=== PATIENT | male | born 1975 | race Caucasian/White ===

== ENCOUNTER → 2016-12-28 | Outpatient (CLI) | payer OTHER ==
[~2016-12-28] MED LIST: DICL75TA PO; GABA-586 PO; LISI1TAB3 PO
[2016-12-28 15:14] LABS: BASO # 0.1 x10^3/uL (0.0-0.2); BASO % 1 % (0-3); EOS % 4 % (0-3); HEMATOCRIT 44.8 % (39.0-53.0); HEMOGLOBIN 15.1 g/dL (13.0-17.5); LYMPH # 3.7 x10^3/uL (1.0-4.8); LYMPH % 44 % (24-48); MEAN CORPUSCULAR HEMOGLOBIN 29 pg (25-35); MEAN CORPUSCULAR HGB CONC 34 g/dL (31-37); MEAN CORPUSCULAR VOLUME 86 fL (79-100); MONO % 6 % (0-9); NEUT % 45 % (31-73); PLATELET COUNT 185 x10^3/uL (140-400); RED BLOOD COUNT 5.19 x10^6/uL (4.30-5.70); RED CELL DISTRIBUTION WIDTH 14.3 % (11.5-14.5); WHITE BLOOD COUNT 8.5 x10^3/uL (4.0-11.0)
[2016-12-28 15:38] LABS: ALBUMIN 3.6 g/dL (3.4-5.0); ALBUMIN/GLOBULIN RATIO 1.2 (1.0-1.7); CALCIUM 8.2 mg/dL (8.5-10.1); CREATININE 1.2 mg/dL (0.7-1.3); GFR 66.1; POTASSIUM 3.4 mmol/L (3.5-5.1); TOTAL BILIRUBIN 0.5 mg/dL (0.2-1.0); TOTAL PROTEIN 6.7 g/dL (6.4-8.2)
--- NOTE | 2016-12-29 09:03 | EKG ---
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
== END | disposition home or self-care (01) ==
LOC: SURGPAT 13:43
PROVIDERS: ATTEND Neurological Surgery
DX: Z01.818 Encounter for other preprocedural examination (principal); I10 Essential (primary) hypertension
CPT/HCPCS: 36415; 80053; 83036; 85025; 87641; 93005

== ENCOUNTER 2017-01-06 09:46 | Day surgery (SDC) | payer OTHER ==
[~2017-01-06] VITALS: Ht 177.8 cm; Wt 112.0 kg
--- NOTE | 2017-01-06 06:53 | HP ---
ADMIT DATE: 01/05/2017 This is Jaswant Eugene RN, dictating for Dr. Alli Callahan. SCHEDULED DATE OF SURGERY: 01/06/2017 HISTORY OF PRESENT ILLNESS: The patient is a pleasant 41-year-old who in 2011 underwent lumbar surgery, which he said helped for about 2 years. His current problem is low back pain and predominantly on the left side with pain which radiates into his left hip and lateral thigh and leg. The problem has been present for about 3 years and it is slowly progressing. Currently, the pain is at 3/10. He says with activity and walking, his pain is increased significantly. He takes gabapentin and diclofenac and uses Advil. He has had epidural steroid injections, which only gave him a few days relief. I studied him with lumbar myelography. PAST MEDICAL HISTORY: Headaches, hypertension, kidney stones, diabetes. PAST SURGICAL HISTORY: Tonsillectomy in 1991, hernia repair in 2003, laminectomy in 2011. FAMILY HISTORY: Diabetes, heart problem/disease, hypertension, heart attack at an early age, migraines. 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 . Exercises daily. Denies tobacco use. Denies substance abuse. Drinks alcohol one to two times per year. Drinks tea daily. ALLERGIES: PENICILLIN. CURRENT MEDICATIONS: Gabapentin, lisinopril, diclofenac, Advil. REVIEW OF SYSTEMS: A 12-point review of systems was obtained and is noncontributory except for that mentioned above. PHYSICAL EXAMINATION: Alert and oriented x 3. On exam, his strength is 5/5 in upper and lower extremities bilaterally. There was normal sensation in upper and lower extremities with 1+ reflexes. He had a positive straight leg raising on the left and negative straight leg raising on the right. Gait was normal. Examination of lumbar spine, there was a restricted range of motion with moderate tenderness of lower lumbar spine especially in the left side of midline. Normal range of motion of the lower extremities bilaterally. IMAGING: Reviewed. I reviewed a lumbar myelogram and post-myelogram CT scan. The principal abnormality at L5-S1 is bilateral neural foraminal narrowing, which is greater than left side. This is combined with posterior disk bulging, which is more prominent on the left. The result is L5 nerve root compression and neural foramen at L5-S1. ASSESSMENT: 1. Intervertebral disk disorders with radiculopathy, lumbosacral region. 2. Spinal stenosis, lumbosacral region. PLAN: I believe the neural foraminal narrowing at L5-S1 on the left is compromising the left L5 nerve root. I believe this is responsible for his left-sided radicular symptoms, which have been progressing. My recommendation is to undergo lumbar microsurgery at that level. I would perform a transfacet lumbar microdecompression at this level to decompress the left L5 nerve root. I spoke with him about surgery and the techniques involved. He understands the rationale for surgery. He understands that he could develop problems and chronic back pain and eventually require fusion. He would like to go ahead with surgery. We will make the arrangements. ALLI CALLAHAN MD DR: SRIKANTH/antoine JOB#: [id number] / [id number]
[~2017-01-06 09:46] MED LIST changes: +BACITRACIN 50,000 UNIT in IV NORMAL SALINE 1000ML BAG 1,000 ML IRR ONE; +BUPIVAC MPF-EPI 0.5%-1:200000 30 ML VIAL. ONE; +GELATIN SPONGE SIZE 100. ONE; +KETOROLAC 60 MG/2 ML INJ FOR OR. ONE; +THROMBIN TOPICAL 20,000 UNIT SPRAY.SYRN KIT TP ONE; +VANCOMYCIN 1GM IVPB FOR OMNI 250 ML IV PRN
[2017-01-06] MEDS ORDERED: IV RINGERS,LACTATED 1000ML 1,000 ML IV SCH (10:16)
[2017-01-06] MEDS ORDERED: ONDANSETRON PF 4 MG/2 ML VIAL. IV PRN (10:30)
[2017-01-06] MEDS ORDERED: LIDOCAINE 1% 1 ML SYRINGE. ID PRN (10:30)
[2017-01-06] MEDS ORDERED: fentaNYL PF VIAL 100 MCG/2 ML VIAL IV PRN (10:30)
[2017-01-06] MEDS ORDERED: 0.9 % SODIUM CHLORIDE 50 ML VIAL. IJ ONE (10:44)
[2017-01-06] MEDS ORDERED: PROPOFOL 50 ML IV ONE ×2 (10:44→13:23)
[2017-01-06] MEDS ORDERED: LIDOCAINE 2% PF Vial for OR 5 ML VIAL. ONE (10:44)
[2017-01-06] MEDS ORDERED: PROPOFOL 20 ML IV ONE ×2 (10:44→12:48)
[2017-01-06] MEDS ORDERED: REMIFENTANIL 2 MG VIAL. IV ONE (10:45)
[2017-01-06] MEDS ORDERED: fentaNYL PF VIAL 100 MCG/2 ML VIAL ONE ×2 (10:45→14:21)
[2017-01-06] MEDS ORDERED: SUCCINYLCHOLINE 200 MG/10 ML VIAL. ONE (10:45)
[2017-01-06] MEDS ORDERED: DESFLURANE > 120 MINUTES IH ONE (12:28)
[2017-01-06] MEDS ORDERED: DEXAMETHASONE SOD PHOS 20 MG/5 ML VIAL. ONE (12:28)
[2017-01-06] MEDS ORDERED: ONDANSETRON PF 4 MG/2 ML VIAL. ONE (12:58)
[2017-01-06] MEDS: PROCHLORPERAZINE 10 MG/2 ML VIAL. IV PRN ×2 (14:27→15:07)
[2017-01-06] MEDS: fentaNYL PF VIAL 100 MCG/2 ML VIAL IV PRN ×2 (14:29→14:38)
--- NOTE | 2017-01-06 14:32 | DISCH ---
DISCHARGE INSTRUCTIONS Condition on Discharge Condition on Discharge: Stable Activity After Discharge Activity Instructions for Disc: Activity as tolerated, Avoid exertion Bathing Instructions: Shower-keep dressing dry Lifting Instructions after Dis: No heavy lifting, No pulling or pushing, Do not lift >10 pounds Driving Instructions after Dis: Do not drive Diet after Discharge Additional Diet Restrictions: resume home diet Wound Incision Care Other wound/incision instructi: may remove dressing in 48 hrs if dry then may shower- no soaking Contacting the DRRenuka after DC Call your doctor for: Concerns you may have Follow-Up Follow up with: Dr. Callahan's nurse in 2 weeks [phone] LINDA CALLAHAN MD Jan 06, 2017 14:32
[2017-01-06] MEDS ORDERED: CYCL10TA2 PO (14:34)
[2017-01-06] MEDS ORDERED: OXYC-323 PO (14:34)
[2017-01-06] MEDS ORDERED: HYDROmorphone 2 MG/ML VIAL IV PRN (14:45)
[2017-01-06] MEDS ORDERED: MORPHINE SULFATE 4 MG/ML DISP.SYRIN. ONE (14:48)
[2017-01-06] MEDS: MORPHINE SULFATE 4 MG/ML DISP.SYRIN. IV PRN ×2 (14:49→15:07)
[2017-01-06] MEDS ORDERED: oxyCODONE/APAP 5/325 1 TAB TABLET PO ONE ×2 (15:15)
--- NOTE | 2017-01-06 16:04 | OP ---
DATE OF SURGERY: 01/06/2017 PREOPERATIVE DIAGNOSIS: Lumbar radiculopathy from foraminal stenosis, lateral recess stenosis L5-S1 on the left. POSTOPERATIVE DIAGNOSIS: Lumbar radiculopathy from foraminal stenosis, lateral recess stenosis L5-S1 on the left. OPERATION PERFORMED: Lumbar micro hemilaminotomy transfacet exposure with decompression of the left L5 root as well as microdiscectomy L5-S1, left with decompression of left S1 root. The operation was done with EMG monitoring, fluoroscopy, microscopic dissection. SURGEON: Alli Callahan M.D. COMPO CONVEYOR OPERATOR: Ty Morocho MD assisted with the surgery, assisted with the exposure, the removal of scar and decompression of the left L5 and as well a left S1 root with microdiscectomy left L5-S1 as well as the closure. OPERATIVE INDICATIONS: The patient is a very pleasant 41-year-old who in the past has undergone lumbar microsurgery and did well from that. His current problem is back and left leg pain which failed conservative measures and on imaging studies including lumbar myelography, there was foraminal stenosis on the left at L5-S1 as well as some disc bulging at L5-S1 on the left. I recommended lumbar microsurgery. I spoke about the surgery and the risks involved. He understood, he wished to go ahead. DESCRIPTION OF PROCEDURE: Following general endotracheal anesthesia, the patient was positioned prone on the Boom table. His lumbar region was prepped and draped in standard fashion. ANTON hose and AV impulse boots were applied for DVT prophylaxis. The microscope was draped. Fluoroscopy was draped and brought into field. Monitoring was established. Vancomycin 1 gram was given. Using fluoroscopic guidance, small midline incision was made over the L5-S1 interspace. I dissected down through the skin and subcutaneous tissue and placed Conway micro disc retractor and gently worked through the significant amount of dense scarring which was dorsal to the lamina at L5-S1 and I worked down through this and was able to get good retraction. I brought in the high-speed air drill and the microscope. The remainder of surgery was done with the microscope using microscopic technique. I burred down a hemilaminotomy superiorly, worked superolaterally and exposed the takeoff of the L5 root. I then followed this inferiorly. I worked out to the pedicle of L5 and then inferiorly to the pedicle of S1. The L5 root was compressed from hypertrophic ligament as well as some joint material which I removed and fully decompressed the root and then as I worked inferiorly there was a significant disc bulge with S1 root scarred down onto the disc and behind this was dense scarring and hypertrophic bone ligament. I trimmed this material away dorsally and then laterally and then gently retracted the root medially. I incised the annulus with #11 blade and I worked and performed a discectomy. The disc space was virtually collapsed but there was disc material which had herniated posteriorly in the subligamentous position and was compressing the root. I removed this material. I fully decompressed the region. I explored carefully, was easily able to pass [place] dental along the L5 root and then inferiorly I could gently retract the S1 root medially and I had fully decompressed the entire region. I was very pleased with the decompression. During the operation, I did use bipolar cautery judiciously for a large number of tethering epidural veins and I cut some of these with microscissors to help mobilize the root. I irrigated copiously at this point. Hemostasis was perfect. I removed the retractor. Hemostasis again was perfect. I closed the fascia with interrupted absorbable sutures in subcutaneous tissues. Skin was closed with 4-0 subcuticular stitch. The operation went very well and the patient was awakened uneventfully. I was quite pleased with the surgery. ALLI CALLAHAN MD DR: SRIKANTH/antoine JOB#: [id number] / [id number] STELLA
[2017-01-06 16:30] VITALS: BP 135/82
--- NOTE | 2017-01-08 17:14 | PATHOLOGY ---
PATHOLOGY REPORT * * * * * * * * FINAL DIAGNOSIS: Segments of fibrocartilaginous, fibroadipose, and skeletal muscle tissue and bone, lumbar decompression and disc: - Degenerative changes of fibrocartilaginous tissue. COMMENT: There is no evidence of an acute inflammatory process or malignancy. (JPM:mgr; 01/08/2017) REPORT ELECTRONICALLY SIGNED BY: Isra Johnson M.D. DATE/TIME: 01/08/2017 17:13 * * * * * * * * GROSS PATHOLOGY: Received in formalin labeled "Adebayo Lange, lumbar decompression and disc" are multiple segments of martinez, rubbery, and gritty tissue admixed with bone. The specimen measures 2.8 x 2.5 x 0.7 cm in aggregate dimensions. The tissue is submitted entirely in cassette A1, following decalcification. (JPM; 01/07/17) INITIAL CPT CODE(S): A; 53710, 73508 Professional services performed [place] [facility] [address] Technical services performed by [facility] at [address] [place] [address]. SPECIMEN(S) RECEIVED: A.Lumbar decompression and disc CLINICAL HISTORY: Radiculopathy, lumbar stenosis, herniated disc PATIENT: ADEBAYO LANGE /AGE: 12 1975 (Age: 41) PATIENT #: [id number] ALT CASE #: SPECIMEN COLLECTION DATE: 01/06/2017 SPECIMEN RECEIVED DATE: 01/07/2017 [facility] - [address] [place] [address] - PHONE: [phone] * * * END OF REPORT * * *
== END 2017-01-06 16:39 | disposition home or self-care (01) ==
LOC: SURG 09:46 → EDUNIT# 12:00 → SURG 16:39
PROVIDERS: ATTEND Neurological Surgery
DX: M51.16 Intervertebral disc disorders with radiculopathy, lumbar region (principal); M48.06 Spinal stenosis, lumbar region; I10 Essential (primary) hypertension; E11.9 Type 2 diabetes mellitus without complications; F17.200 Nicotine dependence, unspecified, uncomplicated; Z86.69 Personal history of other diseases of the nervous system and sense organs; Z87.442 Personal history of urinary calculi; Z87.39 Personal history of other diseases of the musculoskeletal system and connective tissue; Z86.39 Personal history of other endocrine, nutritional and metabolic disease; Z88.0 Allergy status to penicillin; Z88.8 Allergy status to other drugs, medicaments and biological substances
CPT/HCPCS: 63030; 76000; 82962; 97161; J0330; J0780; J1100; J1885; J2270; J2405; J2704; J3010; J3370; J3490; J7030; J7120; J2001

== ENCOUNTER → 2017-04-06 | Outpatient (CLI) | payer OTHER ==
[2017-01-21 11:00] VITALS: BP 111/68
[~2017-04-06] MED LIST changes: -BACITRACIN 50,000 UNIT in IV NORMAL SALINE 1000ML BAG 1,000 ML IRR ONE; -BUPIVAC MPF-EPI 0.5%-1:200000 30 ML VIAL. ONE; +CEFA2PIG3 IV; +CYCL10TA2 PO; +GADOBUTROL 10 MMOL/10 ML VIAL IV ONE; -GELATIN SPONGE SIZE 100. ONE; -KETOROLAC 60 MG/2 ML INJ FOR OR. ONE; +MAGN4PIG IV; +MORP15TA PO; +MORP30TA3 PO; +OXYC-323 PO; +POLY17PO3 PO; +TAMS0.4C97 PO; -THROMBIN TOPICAL 20,000 UNIT SPRAY.SYRN KIT TP ONE; -VANCOMYCIN 1GM IVPB FOR OMNI 250 ML IV PRN
--- NOTE | 2017-04-06 14:31 | RAD ---
MRI Lumbar Spine without and with contrast History: Low back pain, bilateral leg radiculopathy, recent discectomy Technique: Multiplanar, multi sequential pre and postcontrast MR imaging was performed of the lumbar spine. Contrast: 10 cc Gadavist Comparison: January 11, 2017 Findings: Lumbar vertebral body stature is preserved. There is L5-S1 endplate edema greater than previously, also enhancement in the L5-S1 intervertebral disc space increased in the interval. There is moderate to severe narrowing of the L5-S1 intervertebral disc space. Conus terminates at L1-2. There is no nodular enhancement of the conus or cauda equina. L3-L4: Spinal canal and neural foramina are adequate. There is mild to moderate facet degenerative change. L4-L5: There is moderate facet degenerative change and mild buckling of the ligamentum flavum. Neural foramina and spinal canal are adequate. L5-S1: There is left laminectomy defect. There is enhancing fibrosis in the left lateral recess and at site of laminectomy. There is also enhancing fibrosis along the posterior annular margin. Spinal canal is overall adequate. There is enhancing fibrosis at the anterior-inferior aspects of the neural foramina bilaterally, mild narrowing of the left neural foramen. Right neural foramen is overall adequate. Impression: 1. There is increased L5-S1 endplate edema, also increased enhancement in the L5-S1 intervertebral disc space. Findings may be reactive unless suspicion for infectious spondylitis. There is enhancing fibrosis at L5-S1 as stated. There is no significant lumbar spinal stenosis. There is mild narrowing of the left L5-S1 neural foramen by enhancing fibrosis. Electronically signed by: Brian Lemus MD (04/06/2017 2:28 PM) [id number]
== END | disposition home or self-care (01) ==
LOC: MRI 13:40
PROVIDERS: ATTEND Neurological Surgery
DX: M54.5 Low back pain (principal); R60.9 Edema, unspecified
CPT/HCPCS: 72158; A9585

== ENCOUNTER → 2017-11-23 | Outpatient (CLI) | payer OTHER ==
[2017-11-23 08:21] LABS: CREATININE 1.3 mg/dL (0.7-1.3)
[2017-11-23 08:21] LABS: BLOOD UREA NITROGEN 21 mg/dL (8-26)
[2017-11-23] MEDS: GADOBUTROL 10 MMOL/10 ML VIAL IV (08:49)
== END | disposition home or self-care (01) ==
LOC: MRI 12:32
DX: M46.26 Osteomyelitis of vertebra, lumbar region (principal); M48.07 Spinal stenosis, lumbosacral region; I10 Essential (primary) hypertension; E11.9 Type 2 diabetes mellitus without complications
CPT/HCPCS: 36415; 72158; 82565; 84520; A9585